=== PATIENT | female | born 1985 | race Caucasian/White ===

== ENCOUNTER → 2016-03-24 | Outpatient (REF) | payer OTHER ==
[~2016-03-24] MED LIST: ANUS2.5C2 PR; COLA100C PO; MOM30SS PO; MOTR200T40 PO; PRENTAB40 PO; TYLE167L PO
== END ==
LOC: M LAB REF 14:56
PROVIDERS: ATTEND Physician Assistant Medical
DX: J02.9 Acute pharyngitis, unspecified (principal)

== ENCOUNTER → 2018-06-24 | Outpatient (REF) | payer OTHER ==
[~2018-06-24] MED LIST changes: -COLA100C PO; +COLA100C5 PO; -MOTR200T40 PO; +MOTR200T44 PO
== END ==
LOC: M SFHCLERA 16:25
PROVIDERS: ATTEND Physician Assistant
DX: R31.21 Asymptomatic microscopic hematuria (principal)

== ENCOUNTER → 2018-11-15 | Outpatient (REF) | payer MEDICAID, OTHER ==
[2018-11-15 18:06] LABS: HEMATOCRIT 35.1 % (36.0-47.0); MEAN CORPUSCULAR HEMOGLOBIN 31.1 pg (27.0-33.0); MEAN CORPUSCULAR HGB CONC 34.2 g/dl (32.0-36.5); MEAN CORPUSCULAR VOLUME 90.9 fl (80.0-96.0); PLATELET COUNT, AUTOMATED 214 10^3/uL (150-450); RED BLOOD COUNT 3.86 10^6/uL (4.00-5.40); WHITE BLOOD COUNT 8.4 10^3/uL (4.0-10.0)
[2018-11-15 20:33] LABS: HCG, SERUM QUANTITATIVE 51647 MIU/ML
[2018-11-16 13:30] LABS: RUBELLA IgG QUALITATIVE IMMUNE (IMMUNE)
[2018-11-16 13:59] LABS: HEPATITIS C VIRUS ABY INDEX 0.1 INDEX (<0.8); HIV 1&2 SCREEN CENTAUR NEGATIVE (NEGATIVE)
== END ==
LOC: M LAB REF 16:23
PROVIDERS: ATTEND Nurse Practitioner Women's Health
DX: Z32.01 Encounter for pregnancy test, result positive (principal)

== ENCOUNTER → 2019-03-14 | Outpatient (REF) | payer OTHER | LOC: M LAB REF 12:37 | PROVIDERS: ATTEND Nurse Practitioner Women's Health | DX: Z34.82 Encounter for supervision of other normal pregnancy, second trimester (principal) ==

== ENCOUNTER → 2019-04-27 | Outpatient (CLI) | payer OTHER ==
[2019-04-27 12:12] LABS: HEMATOCRIT 31.1 % (36.0-47.0); HEMOGLOBIN 10.5 g/dl (12.0-15.5); MEAN CORPUSCULAR HEMOGLOBIN 31.9 pg (27.0-33.0); MEAN CORPUSCULAR HGB CONC 33.8 g/dl (32.0-36.5); MEAN CORPUSCULAR VOLUME 94.5 fl (80.0-96.0); PLATELET COUNT, AUTOMATED 168 10^3/uL (150-450); RED BLOOD COUNT 3.29 10^6/uL (4.00-5.40); WHITE BLOOD COUNT 9.1 10^3/uL (4.0-10.0)
== END ==
LOC: M LAB 10:02
PROVIDERS: ATTEND Obstetrics & Gynecology
DX: Z34.03 Encounter for supervision of normal first pregnancy, third trimester (principal)

== ENCOUNTER → 2021-03-21 | Outpatient (CLI) | payer OTHER | LOC: M LABSMTC 13:17 | PROVIDERS: ATTEND Pediatrics | DX: Z20.822 Contact with and (suspected) exposure to COVID-19 (principal) | CPT/HCPCS: C9803; U0003 ==

== ENCOUNTER 2021-03-23 14:52 | Emergency (ER) | payer OTHER ==
[~2021-03-23] VITALS: Ht 162.6 cm; Wt 75.6 kg
[2021-03-23 14:52] VITALS: BP 155/98
== END 2021-03-23 18:15 | disposition home or self-care (01) ==
LOC: M ED 14:52
DX: F41.0 Panic disorder [episodic paroxysmal anxiety] (principal); Z88.0 Allergy status to penicillin

== ENCOUNTER → 2021-10-03 | Outpatient (REF) | payer OTHER | LOC: M LAB REF 11:59 | PROVIDERS: ATTEND Physician Assistant | DX: J02.9 Acute pharyngitis, unspecified (principal) ==